=== PATIENT | female | born 1990 | race Two or more races ===

== ENCOUNTER 2023-06-29 08:57 | Emergency (ER) | payer MEDICAID, OTHER ==
[~2023-06-29] VITALS: Ht 154.9 cm; Wt 66.1 kg
[~2023-06-29 08:57] MED LIST: AMOX875T3 PO; LIDO2SOL26 MT
[2023-06-29] MEDS ORDERED: NABU-72 PO (13:04)
[2023-06-29] MEDS ORDERED: AUG875T PO (13:04)
[2023-06-29] MEDS: KETOROLAC TROMETH 30 MG/ML 1ML VIAL IM ONE (13:30)
[2023-06-29 13:34] VITALS: BP 133/71; PULSE 78; RESP 14; TEMP 98.8; O2SAT 99
== END 2023-06-29 14:07 | disposition home or self-care (01) ==
LOC: ER 08:57
DX: J02.9 Acute pharyngitis, unspecified (principal); R51.9 Headache, unspecified; H92.01 Otalgia, right ear
CPT/HCPCS: 96372; 99283; J1885